=== PATIENT | female | born 1995 | race Caucasian/White ===

== ENCOUNTER 2016-08-05 11:32 | Emergency (ER) | payer OTHER ==
[~2016-08-05] VITALS: Ht 154.9 cm; Wt 50.0 kg
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
[2016-08-05] MEDS ORDERED: ALPR1TAB3 PO (11:54)
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
== END 2016-08-05 17:12 | disposition home or self-care (01) ==
LOC: NEPE 11:32
DX: Z00.00 Encounter for general adult medical examination without abnormal findings (principal)
CPT/HCPCS: 99281